=== PATIENT | female | born 1980 | race Two or more races ===

== ENCOUNTER 2016-07-16 04:24 | Emergency (ER) | payer MEDICAID, OTHER ==
[~2016-07-16] VITALS: Ht 165.1 cm; Wt 97.1 kg
[2016-07-16 04:30] VITALS: BP 141/86
[2016-07-16 05:08] LABS: Urine Bilirubin Negative (Negative); Urine Color Yellow (Yellow); Urine Glucose Normal (Normal); Urine Hyaline Cast FEW /lpf (0 - 2); Urine Nitrite Negative (Negative); Urine RBC 448 /hpf (0 - 4); Urine Squamous Epithelial Cell FEW /hpf (<5); Urine Urobilinogen Normal (Negative)
[2016-07-16 05:14] LABS: Urine Blood 2+ /uL (Negative); Urine Ketone 1+ (Negative)
== END 2016-07-16 06:03 | disposition left against medical advice (07) ==
LOC: ER 04:24
DX: O20.8 Other hemorrhage in early pregnancy (principal); Z3A.36 36 weeks gestation of pregnancy; Z53.21 Procedure and treatment not carried out due to patient leaving prior to being seen by health care provider
CPT/HCPCS: 81001